=== PATIENT | male | born 1985 | race Caucasian/White ===

== ENCOUNTER 2017-12-27 09:47 | Emergency (ER) | payer SELFPAY ==
[~2017-12-27] VITALS: Ht 182.9 cm; Wt 113.6 kg
[~2017-12-27 09:47] MED LIST: AMOXICILLIN 50500 MG PO; NO HOME MEDICATIONS; VICODIN 5/5001 UDTAB PO
[2017-12-27 09:56] VITALS: TEMP 98.3
[2017-12-27 11:02] VITALS: BP 149/99; PULSE 91
== END 2017-12-27 11:03 | disposition home or self-care (01) ==
LOC: COL.ER 09:47
DX: M25.512 Pain in left shoulder (principal); I10 Essential (primary) hypertension; F17.210 Nicotine dependence, cigarettes, uncomplicated

== ENCOUNTER → 2018-08-13 | Outpatient (CLI) | payer BC | LOC: MHCPAIN 11:03 | DX: G89.29 Other chronic pain (principal); M47.817 Spondylosis without myelopathy or radiculopathy, lumbosacral region; M54.16 Radiculopathy, lumbar region; M53.3 Sacrococcygeal disorders, not elsewhere classified | CPT/HCPCS: G0463 ==

== ENCOUNTER 2018-09-08 09:15 | Outpatient (RCR) | payer BC | END 2018-11-25 | disposition still patient (30) | LOC: WSC | DX: M47.27 Other spondylosis with radiculopathy, lumbosacral region (principal); M53.3 Sacrococcygeal disorders, not elsewhere classified; M96.1 Postlaminectomy syndrome, not elsewhere classified; M51.16 Intervertebral disc disorders with radiculopathy, lumbar region ==